=== PATIENT | female | born 1995 | race Caucasian/White ===

== ENCOUNTER 2018-04-11 20:43 | Observation (INO) | payer OTHER ==
[~2018-04-11] VITALS: Ht 154.9 cm; Wt 79.8 kg
== END 2018-04-11 23:00 | disposition home or self-care (01) ==
LOC: 4S 20:43
PROVIDERS: ADMIT Obstetrics & Gynecology; ATTEND Obstetrics & Gynecology
DX: O26.893 Other specified pregnancy related conditions, third trimester (principal); R10.9 Unspecified abdominal pain; Z3A.35 35 weeks gestation of pregnancy
CPT/HCPCS: 81002; G0378

== ENCOUNTER 2018-04-25 22:59 | Observation (INO) | payer OTHER ==
[~2018-04-25] VITALS: Ht 154.9 cm; Wt 82.6 kg
[2018-04-26 00:24] VITALS: BP 112/67
[2018-04-26] MEDS ORDERED: PREN1TAB80 PO (00:47)
== END 2018-04-26 01:30 | disposition home or self-care (01) ==
LOC: 4S 22:59
PROVIDERS: ADMIT Obstetrics & Gynecology; ATTEND Obstetrics & Gynecology
DX: O42.92 Full-term premature rupture of membranes, unspecified as to length of time between rupture and onset of labor (principal); O62.9 Abnormality of forces of labor, unspecified; Z3A.37 37 weeks gestation of pregnancy
CPT/HCPCS: 81002; G0378

== ENCOUNTER 2018-05-05 07:58 | Inpatient (IN) | payer OTHER ==
[~2018-05-05 07:58] MED LIST: PREN1TAB80 PO
[2018-05-05] MEDS ORDERED: RINGERS SOLUTION,LACTATED 1,000 ML IV PRN (08:20)
[2018-05-05] MEDS ORDERED: OXYTOCIN 30 UNITS/LACT RINGERS 500 ML IV ONE (08:20)
[2018-05-05] MEDS ORDERED: CITRIC ACID/SODIUM CITRATE 30 ML SOLUTION UDCUP PO PRN (08:30)
[2018-05-05] MEDS ORDERED: FentaNYL CITRATE-PF 100 MCG/2 ML VIAL IVP PRN (08:30)
[2018-05-05] MEDS ORDERED: LIDOCAINE/PF 1% 30 ML VIAL INJ PRN (08:30)
[2018-05-05] MEDS ORDERED: METOCLOPRAMIDE HCL 5 MG/ML 2 ML VIAL IVP PRN (08:30)
[2018-05-05] MEDS ORDERED: CHOL100062 PO (08:59)
[2018-05-05 09:00] VITALS: BP 115/80
[2018-05-05 09:26] LABS: BASOPHILS % (AUTO) 0.2 % (0.0-2.0); EOSINOPHILS % (AUTO) 0.3 % (1.0-6.0); HEMATOCRIT 36.7 % (36-46); HEMOGLOBIN 12.4 g/dL (12.0-16.0); LYMPHOCYTES # (AUTO) 1.6 K/uL (1.0-4.8); LYMPHOCYTES % (AUTO) 17.7 % (22.0-44.0); MEAN CORPUSCULAR HEMOGLOBIN 30.4 pg (26.0-34.0); MEAN CORPUSCULAR HGB CONC 33.8 G/dL (31.0-37.0); MEAN CORPUSCULAR VOLUME 90 fL (80-100); MONOCYTES # (AUTO) 0.7 K/uL (0.1-1.0); MONOCYTES % (AUTO) 7.4 % (2.0-9.0); NEUTROPHILS # (AUTO) 6.6 K/uL (1.8-7.7); NEUTROPHILS % (AUTO) 74.4 % (40.0-70.0); PLATELET COUNT (AUTO) 119 K/uL (150-450); RED BLOOD CELL COUNT(AUTO) 4.08 MIL/uL (4.00-5.20); RED CELL DISTRIBUTION WIDTH 16.2 % (11.5-14.5)
[2018-05-05] MEDS: RINGERS SOLUTION,LACTATED 1,000 ML IV SCH ×2 (09:36→15:04)
[2018-05-05] MEDS ORDERED: MISOPROSTOL 25 MCG TABLET PO ONE ×2 (09:45→14:00)
[2018-05-05] MEDS ORDERED: AMPICILLIN SODIUM 2 GM/NS 100 ML IV ONE (15:30)
[2018-05-05] MEDS ORDERED: OXYTOCIN 30 UNITS/LACT RINGERS 500 ML IV PRN (18:34)
[2018-05-05] MEDS ORDERED: OXYGEN THERAPY IH SCH (20:00)
[2018-05-05] MEDS ORDERED: ROPIVACAINE HCL/PF 0.2% 100 ML ED ONE (21:13)
[2018-05-05] MEDS ORDERED: ONDANSETRON HCL 4 MG/2 ML VIAL IVP PRN (21:45)
[2018-05-05] MEDS ORDERED: ROPIVACAINE HCL/PF 0.2% 100 ML ED PRN (21:45)
[2018-05-05] MEDS ORDERED: DiphenhydrAMINE HCL 50 MG/ML VIAL IVP PRN (21:45)
[2018-05-06] MEDS: AMPICILLIN SODIUM 1 GM/NS 50 ML IV SCH ×2 (01:56→05:52)
[2018-05-06] MEDS ORDERED: ROPIVACAINE HCL/PF 0.2% 100 ML ED ONE (04:41)
[2018-05-06] MEDS: RINGERS SOLUTION,LACTATED 1,000 ML IV SCH (05:52)
[2018-05-06] MEDS ORDERED: RINGERS SOLUTION,LACTATED 1,000 ML IV ONE (08:50)
[2018-05-06] MEDS ORDERED: LANOLIN 7 GM OINTMENT TP PRN (09:00)
[2018-05-06] MEDS ORDERED: GLYCERIN/WITCH HAZEL LEAF 40 PADS JAR TP PRN (09:00)
[2018-05-06] MEDS ORDERED: MAGNESIUM HYDROXIDE SUSPENSION 30 ML UDCUP PO SCH (09:00)
[2018-05-06] MEDS ORDERED: BENZOCAINE 20%/MENTHOL 56 GM SPRAY CANISTER TP PRN (09:00)
[2018-05-06] MEDS ORDERED: OxyCODONE HCL/ACETAMINOPHEN 5-325 MG TABLET PO PRN (09:00)
[2018-05-06] MEDS ORDERED: MEASLES/MUMPS/RUBELLA VACCINE, LIVE 0.5 ML/VIAL SQ ONE (09:00)
[2018-05-06] MEDS: OxyCODONE HCL/ACETAMINOPHEN 5-325 MG TABLET PO PRN (12:07)
[2018-05-06] MEDS: IBUPROFEN 600 MG TABLET PO PRN (18:11)
[2018-05-07] MEDS: IBUPROFEN 600 MG TABLET PO PRN ×2 (01:28→08:38)
[2018-05-07] MEDS: OxyCODONE HCL/ACETAMINOPHEN 5-325 MG TABLET PO PRN ×2 (02:55→08:38)
[2018-05-07] MEDS ORDERED: IBUP-2071 PO (10:36)
[2018-05-07] MEDS ORDERED: DSS100 PO (10:36)
== END 2018-05-07 11:45 | disposition home or self-care (01) | DRG 560 ==
LOC: 4S 07:58 → OBSVTOIN 07:58
PROVIDERS: ADMIT Obstetrics & Gynecology; ATTEND Obstetrics & Gynecology
PROC: 10E0XZZ Delivery of Products of Conception, External Approach (ICD-10-PCS; principal; 2018-05-06)
PROC: 0KQM0ZZ Repair Perineum Muscle, Open Approach (ICD-10-PCS; 2018-05-06)
PROC: 3E0R3BZ Introduction of Anesthetic Agent into Spinal Canal, Percutaneous Approach (ICD-10-PCS; 2018-05-06)
PROC: 00HU33Z Insertion of Infusion Device into Spinal Canal, Percutaneous Approach (ICD-10-PCS; 2018-05-06)
DX: O70.1 Second degree perineal laceration during delivery (principal); Z37.0 Single live birth; Z3A.39 39 weeks gestation of pregnancy
CPT/HCPCS: 86850; 86900; 86901; J0290; J2590; J2795; J3010; J3490; J7120

== ENCOUNTER 2018-10-28 19:42 | Emergency (ER) | payer OTHER ==
[~2018-10-28] VITALS: Ht 162.6 cm; Wt 71.0 kg
[~2018-10-28 19:42] MED LIST changes: +DSS100 PO; +IBUP-2071 PO
[2018-10-28 19:55] VITALS: BP 120/79
== END 2018-10-28 21:00 | disposition left against medical advice (07) ==
LOC: EMS 19:43
DX: R50.9 Fever, unspecified (principal); Z53.21 Procedure and treatment not carried out due to patient leaving prior to being seen by health care provider

== ENCOUNTER 2018-11-03 21:18 | Emergency (ER) | payer OTHER ==
[~2018-11-03] VITALS: Ht 160 cm; Wt 70.0 kg
[2018-11-03 21:28] VITALS: BP 126/77
== END 2018-11-04 00:48 | disposition left against medical advice (07) ==
LOC: EMS 21:19
DX: R07.9 Chest pain, unspecified (principal); R11.0 Nausea; Z53.21 Procedure and treatment not carried out due to patient leaving prior to being seen by health care provider
CPT/HCPCS: 93005